=== PATIENT | male | born 1950 | race Hispanic/Latino ===

== ENCOUNTER 2021-11-03 04:49 | Emergency (ER) | payer MEDICARE ==
[~2021-11-03] VITALS: Ht 167.6 cm; Wt 88.5 kg
[~2021-11-03 04:49] MED LIST: ASPIR 8181 MG PO; CIALIS20 MG PO; DAILY VITAMIN1 EAC3; FISH OIL 1,0001 EAC2 PO; JANUMET 50-1,01 EACH; LISINOPRIL40 MG PO; METFORMIN HCL500 M2 PO; METOPROLOL SUCC25 MG PO; RED YEAST RICE600 M1 PO; SIMVASTATIN40 MG PO; SUPER B COMPLE1 EACH; VITAMIN D3 1,01 EACH
[2021-11-03] MEDS ORDERED: SODIUM CHLORIDE 0.9% 100 ML ONE (05:18)
[2021-11-03] MEDS ORDERED: SOTROVIMAB 500 MG in SODIUM CHLORIDE 0.9% 100 ML IV ONE (05:30)
== END 2021-11-03 06:19 | disposition home or self-care (01) ==
LOC: ER 05:05
DX: U07.1 COVID-19 (principal); E11.9 Type 2 diabetes mellitus without complications; E78.5 Hyperlipidemia, unspecified; Z85.038 Personal history of other malignant neoplasm of large intestine; Z79.82 Long term (current) use of aspirin; Z79.84 Long term (current) use of oral hypoglycemic drugs; Z79.899 Other long term (current) drug therapy
CPT/HCPCS: 99283; J7050